=== PATIENT | male | born 2005 | race Caucasian/White ===

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

== ENCOUNTER 2024-11-14 11:18 | Emergency (ER) | payer MEDICAID, SELFPAY ==
[2024-11-14 11:25] VITALS: BP 165/98; PULSE 120; RESP 18; TEMP 36.7; O2SAT 98; BMI 43.2
--- NOTE | 2024-11-14 11:41 | PC.NURSE ---
Dr. Alford at bedside
[2024-11-14 12:20] LABS: VBG Base Excess -1.7 mmol/L (-2.4-2.3); VBG HCO3 23.3 mmol/L (23-30); VBG Oxygen Saturation 84.7 % (50-70); VBG PCO2 39.4 mmol/L (35-51); VBG PH 7.39 mmol/L (7.31-7.41); VBG PO2 48.7 mmol/L (28-40); VBG Total CO2 24.5 mmol/L (23-27)
[2024-11-14 12:23] LABS: Basophils # 0.1 K/mm3 (0-0.2); Basophils % 0.6 % (0.1-2.0); Eosinophils # 0.2 K/mm3 (0.0-0.4); Hematocrit 45.5 % (42.0-52.0); Hemoglobin 14.8 g/dL (14.1-18.0); Lymphocytes # 1.7 K/mm3 (0.7-4.5); Lymphocytes % 9.5 % (10-50); Mean Corpuscular HGB Conc 32.5 g/dL (31.8-35.4); Mean Corpuscular Hemoglobin 27.3 pg (27.0-31.2); Mean Corpuscular Volume 83.8 fl (80-94); Mean Platelet Volume 9.4 fl (7.4-10.4); Monocytes # 1.6 K/mm3 (0.1-1.0); Monocytes % 9.2 % (1.7-9.3); Neutrophils # 14.1 K/mm3 (1.8-7.8); Neutrophils % 79.7 % (37.0-80.0); Platelet Count 407 K/mm3 (142-424); Red Blood Count 5.43 M/mm3 (4.60-6.20); Red Cell Distribution Width 14.4 % (11.5-17.5); White Blood Count 17.7 K/mm3 (4.5-13.0)
[2024-11-14] MEDS: KETOROLAC 30MG/ML VIAL 15 MG IV (12:23)
--- NOTE | 2024-11-14 12:24 | HMH.EDGENADL ---
Discharge Plan Disposition Patient Disposition: Home, Self-Care Referrals Follow up/Referrals: Nallely Brarett [Primary Care Provider] - See instructions Activity Restrictions/Add. Instructions Additional Instructions/Restrictions: Expect redness not to get better for 3 days (72 hours). Call your family doctor to establish care for this visit to the emergency department and schedule follow-up within 48 hours to ensure improvement. If you have any worsening of your condition or any other concerning signs or symptoms, return to the emergency department or your primary care doctor for further evaluation. Clinical Impressions Clinical Impression: Cellulitis of right leg Print Language Print Language: Pashto Discharge ED Provider: Jimenez Alford General Adult HPI General Chief complaint: Extremity Injury, Lower Stated complaint: Pain and swelling R leg Time Seen by Provider: 11/14/24 11:24 Mode of Arrival: Ambulatory Source of Information: Patient Description of Symptoms (Recalled from ER Triage Doc. by RN): Reports seeing Nallely Barrett this am related to cellulitis of his right leg. States that she a did a DVT ultrasound last week and prescribed him Bactrim. States that it isn't getting better so she sent him to the ER for further evaluation. History of Present Illness HPI narrative: Please note that above description of symptoms, in this electronic medical record under categorization of recalled from ER triage doctor by RN are reflective of an initial nursing assessment, however, is not reflective of my full history and physical exam that was personally taken and clarified. Consequentially, this preceding description of symptoms, which may include the patient's categorized chief complaint in the EMR, do not reflect my personal clinical impression, and the ultimate description of history of present illness and patient stated complaints should be deferred to this section of the note. Unless stated otherwise or congruent with this section of the note, additional signs, symptoms, or incongruence should be interpreted as inaccurate with my clinical impression. Related Data Allergies Allergy/AdvReac Type Severity Reaction Status Date / Time No Known Allergies Allergy Verified 11/14/24 11:30 [facility] Disclaimer: The information contained in this section may have been updated after the patient was seen, as this information can be updated by other users. Social History Smoking Status: Never smoker alcohol intake: never current occupational status: employed Travel in the last 8 weeks: None ROS Obtained: Yes All systems reviewed & no additional complaints except as documented Physical Exam General General appearance: alert Head Head exam: atraumatic and normocephalic Eye Eye exam: Present normal appearance, PERRL and EOMI Neck Neck exam: Present normal inspection, full ROM and trachea midline Respiratory Respiratory exam: Absent respiratory distress, wheezes, stridor, accessory muscle use or prolonged expiratory phase Cardiovascular Cardiovascular exam: Present other (Pulses equal symmetric in upper and lower extremities) Abdominal Exam Abdominal exam: Present soft; Absent distention, tenderness or pulsatile mass Extremities Exam Extremities exam: Present edema (With associated erythema about the right foot and ankle) Neurological Exam Neurological exam: Present alert, oriented X3 and CN II-XII intact; Absent motor sensory deficit Skin Skin exam: Present warm and dry; Absent diaphoresis or erythema Medical Decision Making Medical Records Medical records reviewed: Yes I reviewed the patient's medical records. Screening: Per USPSTF and CDC recommendations, given the prevalence of disease in our region, it is our hospital?s policy to screen for HIV and viral Hepatitis for all patients aged 18 and over and those with ongoing risk factors. Mike Inquiry Pt receiving controlled substance: No Mike was queried for this patient: No Vital Signs: 11/14/24 11:25 11/14/24 13:26 11/14/24 14:14 Temperature 98.0 F 98.0 F Temperature Source Oral Oral Pulse Rate 96 H 101 H Pulse Rate [Radial] 120 H Respiratory Rate 18 16 16 Blood Pressure 126/78 Blood Pressure [Right Arm] 165/98 H Blood Pressure Mean [Right Arm] 120 Blood Pressure Source Automatic Cuff Blood Pressure Source [Right Arm] Automatic Cuff Blood Pressure Position Sitting Blood Pressure Position [Right Arm] Sitting 02 Sat by Pulse Oximetry 98 99 Oxygen Delivery Method Room Air Room Air Room Air Lab Data Lab Results 11/14/24 11:52: VBG pH 7.39, VBG pCO2 39.4, VBG pO2 48.7 H, VBG HCO3 23.3, VBG Total CO2 24.5, VBG O2 Saturation 84.7 H, VBG Base Excess -1.7, VBG Lactic Acid 2.0 11/14/24 12:12: WBC 17.7 H, RBC 5.43, Hgb 14.8, Hct 45.5, MCV 83.8, MCH 27.3, MCHC 32.5, RDW 14.4, Plt Count 407, MPV 9.4, Neut % (Auto) 79.7, Lymph % (Auto) 9.5 L, Bee % (Auto) 9.2, Eos % (Auto) 1.0, Baso % (Auto) 0.6, Neut # (Auto) 14.1 H, Lymph # (Auto) 1.7, Bee # (Auto) 1.6 H, Eos # (Auto) 0.2, Baso # (Auto) 0.1, Total Counted 100, Neutrophils % (Manual) 80 H, Lymphocytes % (Manual) 15, Monocytes % (Manual) 5, Platelet Estimate Normal, RBC Morphology Normal, Sodium 138, Potassium 4.1, Chloride 101, Carbon Dioxide 23, Anion Gap 18.1 H, BUN 17, Creatinine 0.90, Estimated Creat Clear 165, Estimated GFR 108, Est GFR ( Amer) 130, Glucose 122 H, Lactate 1.5, Calcium 10.1, Total Bilirubin 1.0, AST 21, ALT 21, Alkaline Phosphatase 63, Total Creatine Kinase 80, Total Protein 8.7 H, Albumin 4.2, Globulin 4.5 H, Albumin/Globulin Ratio 0.9 L 11/14/24 12:12 11/14/24 12:12 Orders (Tests/Meds): ED MEDICATIONS Discontinued Medications Generic Name Dose Route Start Last Admin Trade Name Freq PRN Reason Stop Dose Admin Sodium Chloride 2,670 mls @ 1,335 mls/hr 11/14/24 11:51 11/14/24 12:23 Sod Chlor 0.9% 1000ml Bag 30 ml/kg infuse over 2 hr (2670 ml) 11/14/24 13:50 1,335 mls/hr IV Administration .Q2H ONE [place]in 1,500 mg/ Dextrose 250 mls @ 500 mls/hr 11/14/24 13:30 11/14/24 13:35 IV 11/14/24 13:59 500 mls/hr ONCE ONE Administration Ketorolac Tromethamine 15 mg 11/14/24 11:51 11/14/24 12:23 Ketorolac 30mg/Ml Vial IV 11/14/24 11:52 15 mg ONCE ONE Administration ORDERS Category Date Time Status CBC w/Auto Diff [Complete Blood Count Auto Diff] Stat Lab 11/14/24 12:12 Completed CK [Creatine Kinase] Stat Lab 11/14/24 12:12 Completed CMP [Comprehensive Metabolic Panel] Stat Lab 11/14/24 12:12 Completed Lactic Acid Stat Lab 11/14/24 12:12 Completed Blood Culture Stat Micro 11/14/24 12:18 Received VBG [Venous Blood Gas] Stat RT 11/14/24 11:52 Completed Medical Decision Narrative: Otherwise healthy 19-year-old male presenting with pain and swelling of his right ankle. He states that this started over a week and has seen his family doctor. DVT ultrasound was performed, this was negative, but he does have cellulitis. Was started on Bactrim. Since that time, has gotten worse. States that the pain is so severe at this point that he is having difficulty bearing weight and has to limp on it because of the pain. It is mostly medial, does not radiate, no systemic signs or symptoms, fevers, chills, but he does have decreased appetite and anorexia. Sent to the emergency department for further evaluation. History was obtained via conversation with patient and family physician. On arrival, patient hemodynamically stable, alert, oriented x4, appropriate, GCS 15, moving all extremities spontaneously, pupils equal and reactive to light. Full physical exam performed and significant for 19-year-old male no acute distress. He is tachycardic and hypertensive. No murmurs gallops or rubs. Right lower extremity with pitting edema, erythema, warmth, redness, tenderness primarily about the medial aspect of the ankle overlying medial foot and malleolus. Neurovascular intact, able to bear weight, no outward signs of deformity. Differential includes cellulitis, necrotizing soft tissue infection, myositis, lymphangitis, among others. Patient placed on continuous cardiac monitoring and continuous pulse ox with initial blood pressure 165/98, heart rate 120, saturation 98% on room air. Patient was given sepsis bolus, Toradol for symptomatic management and correction of underlying abnormalities. Workup independently interpreted and significant for leukocytosis 17,000, neutrophilic. Patient's lactate negative. VBG normal. Chemistry nonactionable as well. On reevaluation, patient still very clinically well-appearing and tachycardia is improved. Given patient presentation, workup, history, this most likely represents moderate skin and soft tissue infection of the lower extremity. Because patient at baseline without signs or symptoms of clinical decompensation, deemed appropriate for discharge. Results were relayed to patient who voiced understanding and were agreeable to outpatient management and follow up. I discussed my clinical impression with patient and answered all questions. At this time, the evidence for any other entities in the differential is insufficient to warrant any further testing or ED observation. This was explained as well. Advisory was given that persistent or worsening symptoms require further evaluation. I confirmed the understanding of this discussion. Patient states he is going to follow-up with his family doctor before the end of the week. Associate Professor Computer Science disclaimer Much of this encounter note is an electronic biscuit factory worker spoken language to printed text. Electronic biscuit factory worker of the spoken language may permit errors. Although I have reviewed the note, some errors may still exist. Critical Care Critical Care Time Critical Care Time: No
[2024-11-14 12:28] LABS: MANUAL DIFFERENTIAL MANUAL DIFFERENTIAL (MANUAL DIFF)
[2024-11-14 12:30] LABS: Lactic Acid 1.5 mmol/L (0.7-2.1)
[2024-11-14 12:32] LABS: Alanine Aminotransferase 21 U/L (12-78); Albumin Level 4.2 g/dl (3.5-5.0); Albumin/Globulin Ratio 0.9 (1.1-1.8); Alkaline Phosphatase 63 U/L (38-126); Anion Gap 18.1 mEq/L (5-15); Aspartate Amino Transferase 21 U/L (17-59); Blood Urea Nitrogen 17 mg/dl (9-20); Calcium 10.1 mg/dl (8.4-10.2); Carbon Dioxide 23 mmol/L (22.0-30.0); Chloride 101 mmol/L (98-107); Creatine Kinase 80 U/L (55-170); Creatinine Clearance Estimated 165 mL/min (50-200); Estimated Glomerular Filt Rate 108 ml/min (>60); GFR (African American) 130 ML/MIN (>60); Globulin 4.5 g/dL (1.3-3.2); Glucose 122 mg/dl (74-100); Potassium 4.1 mmoL/L (3.5-5.1); Sodium 138 mmol/L (136-145); Total Protein,Serum 8.7 g/dl (6.3-8.2)
[2024-11-14 13:26] VITALS: PULSE 96; RESP 16; O2SAT 99
[2024-11-14] MEDS: DALBAVANCIN HCL 1,500 MG in DEXTROSE 5 % IN WATER 250 ML 500 MG IV (13:35)
[2024-11-14 14:01] LABS: Lymphocytes % 15 % (10-50); Monocytes % 5 % (2-9); Neutrophils % 80 % (42-76); Platelet Estimate Normal; RBC Morphology Normal; Total Cells Counted 100
[2024-11-14 14:14] VITALS: BP 126/78; PULSE 101; RESP 16; TEMP 36.7; O2SAT 99
== END 2024-11-14 14:30 | disposition home or self-care (01) ==
PROVIDERS: Emergency Provider Emergency Medicine; PCP Nurse Practitioner Family
DX: L03.115 Cellulitis of right lower limb (principal); M79.604 Pain in right leg; M25.571 Pain in right ankle and joints of right foot; R22.41 Localized swelling, mass and lump, right lower limb
CPT/HCPCS: 80053; 82550; 82803; 83605; 85007; 85025; 85027; 87040; 96361; 96365; 96374; 99284; J0875; J1885; J7030; J7060

== ENCOUNTER 2025-01-23 16:00 | Outpatient (RCR) | payer OTHER, SELFPAY | END 2025-01-30 12:06 | disposition home or self-care (01) | LOC: PT.CARL 16:00 | PROVIDERS: Visit Provider Plastic Surgery | DX: S69.81XA Other specified injuries of right wrist, hand and finger(s), initial encounter (principal); X58.XXXA Exposure to other specified factors, initial encounter | CPT/HCPCS: 97110; 97163; 97530 ==